=== PATIENT | female | born 1995 | race Caucasian/White ===

== ENCOUNTER 2023-07-06 13:25 | Inpatient (IN) | payer OTHER ==
[2023-07-06] MEDS: ELECTROLYTE-148 SOLN 1,000 ML IV SCH (14:20)
[2023-07-06 14:56] LABS: BASO % 0.3 % (0-2.0); HEMATOCRIT 34.1 % (32.4-45.2); HEMOGLOBIN 11.3 GM/dL (10.7-15.3); LYMPH % 28.9 % (8-40); MCH 27.5 pg (25.7-33.7); MCHC 33.2 g/dl (32.0-36.0); MEAN CELL VOLUME 82.6 fl (80-96); MEAN PLT VOLUME 8.7 fl (7.5-11.1); MONO % 5.3 % (3.8-10.2); NEUT % 64.5 % (42.8-82.8); PLATELET COUNT 196 10^3/uL (134-434); RBC 4.13 M/mm3 (3.60-5.2); WHITE BLOOD COUNT 10.1 K/mm3 (4.0-10.0)
[2023-07-06 14:58] VITALS: BMI 42.0
[2023-07-06 15:03] LABS: INR 0.98 (0.83-1.09); PROTHROMBIN TIME (PATIENT) 11.4 SEC (9.7-13.0)
[2023-07-06 15:06] LABS: ACTIVATED PTT 27.5 SECONDS (25.2-36.5)
[2023-07-06 15:24] LABS: POTASSIUM 4.1 mmol/L (3.5-5.1)
[2023-07-06 15:29] LABS: CREATININE 0.6 mg/dL (0.55-1.3)
[2023-07-06] MEDS ORDERED: CITRIC ACID/SODIUM CITRATE 30 ML UNIT-DOSE CUP PO ONE (15:44)
[2023-07-06] MEDS ORDERED: OXYTOCIN 10 UNITS/ML VIAL ONE (15:45)
[2023-07-06] MEDS ORDERED: ELECTROLYTE-148 SOLN 1,000 ML IV SCH (15:45)
[2023-07-06] MEDS ORDERED: FENTANYL CITRATE/PF 50 MCG/ML VIAL ONE (15:45)
[2023-07-06] MEDS ORDERED: morphine SULFATE/PF 1 MG/2 ML (2cc Syringe - QUVA) ONE (15:45)
[2023-07-06] MEDS ORDERED: PHENYLEPHRINE HCL 10 MG/1 ML SINGLE DOSE VIAL ONE (15:45)
[2023-07-06] MEDS ORDERED: ONDANSETRON 4 MG/2 ML VIAL ONE (15:45)
[2023-07-06] MEDS ORDERED: LACTATED RINGERS SOLUTION 1,000 ML/1,000 ML INFUS.BAG IV SCH (15:45)
[2023-07-06] MEDS ORDERED: KETOROLAC TROMETHAMINE 30 MG/1 ML VIAL ONE (15:45)
[2023-07-06] MEDS ORDERED: ceFAZolin SODIUM 1 GM VIAL ONE (15:48)
[2023-07-06 16:20] LABS: HIV INTERPRETATION NEGATIVE (NEGATIVE)
[2023-07-06 17:20] LABS: CORD BASE EXCESS -3.6 mmol/L (0-2); CORD HCO3 22.3 mmHg (20-29); CORD PCO2 42.9 mmHg (30-78); CORD pH 7.333 (7.14-7.44)
[2023-07-06 17:22] LABS: CORD HCO3 24.5 mmHg (20-29); CORD pH 7.267 (7.14-7.44)
[2023-07-06] MEDS ORDERED: ONDANSETRON 4 MG/2 ML VIAL IVPUSH PRN (17:45)
[2023-07-06] MEDS ORDERED: METHYLERGONOVINE MALEATE 0.2 MG/1 ML AMP IM PRN (17:49)
[2023-07-06] MEDS ORDERED: SENNOSIDES/DOCUSATE COMBO (SENNA PLUS) TABLET (UD) PO PRN (17:49)
[2023-07-06] MEDS ORDERED: OXYTOCIN 20 UNITS in 0.9% NS 20 UNIT/1,000 ML INFUS.BAG IV SCH (18:00)
[2023-07-06] MEDS ORDERED: OXYTOCIN 20 UNITS in 0.9% NS 20 UNIT/1,000 ML INFUS.BAG IV ONE (18:32)
[2023-07-06] MEDS ORDERED: IBUPROFEN 800 MG/8 ML IJ IVPB ONE (18:33)
[2023-07-06] MEDS: IBUPROFEN 800 MG/8 ML IJ IVPB PRN (18:39)
[2023-07-06] MEDS ORDERED: NIFEdipine 10 MG CAPSULE (FP) ONE (19:39)
[2023-07-06] MEDS ORDERED: NIFEdipine 10 MG CAPSULE (FP) PO ONE (19:45)
[2023-07-06] MEDS: ACETAMINOPHEN 325 MG TABLET (FP) PO PRN (22:30)
[2023-07-07] MEDS: IBUPROFEN 800 MG/8 ML IJ IVPB PRN ×2 (01:10→13:41)
[2023-07-07] MEDS: ACETAMINOPHEN 325 MG TABLET (FP) PO PRN ×2 (05:15→09:28)
[2023-07-07] MEDS: SIMETHICONE 80 MG TAB.CHEW (FP) PO PRN ×3 (05:15→20:02)
[2023-07-07] MEDS ORDERED: oxyCODONE HCL 5 MG TABLET PO PRN ×2 (05:49)
[2023-07-07 09:13] LABS: BASO % 0.3 % (0-2.0); EOS % 1.2 % (0-4.5); HEMATOCRIT 31.5 % (32.4-45.2); HEMOGLOBIN 10.2 GM/dL (10.7-15.3); LYMPH % 29.4 % (8-40); MCH 27.3 pg (25.7-33.7); MCHC 32.4 g/dl (32.0-36.0); MEAN CELL VOLUME 84.3 fl (80-96); MEAN PLT VOLUME 8.7 fl (7.5-11.1); MONO % 4.9 % (3.8-10.2); NEUT % 64.2 % (42.8-82.8); PLATELET COUNT 174 10^3/uL (134-434); RBC 3.73 M/mm3 (3.60-5.2); RDW 15.1 % (11.6-15.6)
[2023-07-07] MEDS: PRENATAL VITAMINS W/ FOLIC ACID TABLET (FP) PO SCH (09:24)
[2023-07-07 13:09] VITALS: RESP 18
[2023-07-07] MEDS ORDERED: BISACODYL 10 MG SUPP.RECT RC PRN (17:49)
[2023-07-07] MEDS: IBUPROFEN 600 MG TABLET (FP) PO PRN (20:02)
[2023-07-08] MEDS: SIMETHICONE 80 MG TAB.CHEW (FP) PO PRN ×3 (06:36→21:02)
[2023-07-08] MEDS: IBUPROFEN 600 MG TABLET (FP) PO PRN ×2 (06:36→15:44)
[2023-07-08] MEDS: ACETAMINOPHEN 325 MG TABLET (FP) PO PRN ×2 (09:18→21:02)
[2023-07-08] MEDS: PRENATAL VITAMINS W/ FOLIC ACID TABLET (FP) PO SCH (09:19)
[2023-07-08] MEDS: ELECTROLYTE-148 SOLN 1,000 ML IV SCH (22:23)
[2023-07-09] MEDS: IBUPROFEN 600 MG TABLET (FP) PO PRN ×2 (01:03→09:23)
[2023-07-09] MEDS: SIMETHICONE 80 MG TAB.CHEW (FP) PO PRN (01:03)
[2023-07-09 07:41] VITALS: BP 126/74; PULSE 81; TEMP 98
[2023-07-09 08:01] LABS: BASO % 0.5 % (0-2.0); EOS % 3.1 % (0-4.5); HEMATOCRIT 31.9 % (32.4-45.2); HEMOGLOBIN 10.5 GM/dL (10.7-15.3); LYMPH % 29.3 % (8-40); MCH 27.7 pg (25.7-33.7); MCHC 32.8 g/dl (32.0-36.0); MEAN CELL VOLUME 84.5 fl (80-96); MONO % 5.8 % (3.8-10.2); NEUT % 61.3 % (42.8-82.8); PLATELET COUNT 220 10^3/uL (134-434); RBC 3.78 M/mm3 (3.60-5.2); RDW 15.4 % (11.6-15.6); WHITE BLOOD COUNT 8.1 K/mm3 (4.0-10.0)
[2023-07-09] MEDS: PRENATAL VITAMINS W/ FOLIC ACID TABLET (FP) PO SCH (09:23)
== END 2023-07-09 13:32 | disposition home or self-care (01) | DRG 540 ==
LOC: JLDR 13:25 → J3W 21:40
PROVIDERS: ADMIT Obstetrics & Gynecology; ATTEND Obstetrics & Gynecology
PROC: 10D00Z1 Extraction of Products of Conception, Low, Open Approach (ICD-10-PCS; principal; 2023-07-06)
DX: O32.1XX0 Maternal care for breech presentation, not applicable or unspecified (principal); O36.5930 Maternal care for other known or suspected poor fetal growth, third trimester, not applicable or unspecified; O41.03X0 Oligohydramnios, third trimester, not applicable or unspecified; O14.04 Mild to moderate pre-eclampsia, complicating childbirth; Z3A.38 38 weeks gestation of pregnancy; Z37.0 Single live birth
CPT/HCPCS: 36415; 36600; 80048; 82803; 85025; 85610; 85730; 86780; 86850; 86900; 86901; 87389; 87635; 88307-TC; 94010